=== PATIENT | male | born 1985 | race Caucasian/White ===

== ENCOUNTER 2019-09-10 22:57 | Emergency (ER) | payer OTHER ==
[~2019-09-10] VITALS: Ht 195.6 cm; Wt 127.0 kg
[2019-09-10 23:25] VITALS: BP 159/81
[2019-09-11] MEDS ORDERED: cloNIDine HCL 0.1 MG TAB PO ONE (00:45)
== END 2019-09-11 01:27 | disposition short-term general hospital (02) ==
LOC: EDBD 22:57 → ER 22:57
DX: I10 Essential (primary) hypertension (principal); Z91.14 Patient's other noncompliance with medication regimen
CPT/HCPCS: 93005